=== PATIENT | female | born 1990 | race Caucasian/White ===

== ENCOUNTER 2020-02-24 00:35 | Inpatient (IN) | payer BC ==
[2020-02-24] VITALS (61 sets, daily range): BP systolic 98–143; BP diastolic 53–88; PULSE 71–126; TEMP 97.9–98.6
[~2020-02-24] VITALS: Ht 170.2 cm; Wt 76.6 kg
--- NOTE | 2020-02-24 00:45 | NUR ---
0045- Pt. ambulatory to the floor with by her side. Pt. orientated to room and changed into gown. Pt. reports SROM at 2330 at home. Pt. denies contractions and verbalized some bloody show and reports GFM. 0056- EFM and TOCO on and tracing. RN remains at bedside. Amniotrace done and positive for amniotic fluid. SVE /-2. Vitals taken and assessment completed. 0139- Dr. Palma, transportation operations manager, updated on labor check. See provider notification. Consents signed, IV started and fluids running.
[2020-02-24] MEDS ORDERED: TIROSINT100 MC1 PO (01:08)
[2020-02-24] MEDS ORDERED: PRENATAL TABLET PO (01:08)
[2020-02-24 02:43] LABS: BASO % 0.5 % (0.0-2.0); EOS # 0.1 (0.0-0.7); EOS % 1.7 % (0-4.0); GRAN % 70.9 % (42.2-75.2); HEMATOCRIT 36.5 % (37.0-47.0); HEMOGLOBIN 11.9 g/dl (12.5-16.0); LYMPH # 1.4 (1.2-3.4); LYMPH % 16.9 % (20.0-51.0); MEAN CELL VOLUME 87 fl (80.0-100.0); MEAN CORPUSCULAR HEMOGLOBIN 28 pg (27.0-31.0); MEAN CORPUSCULAR HGB CONC 33 g/dl (33.0-37.0); MEAN PLATELET VOLUME 9.2 fl (7.4-10.4); MONO # 0.8 (0.1-0.6); MONO % 8.9 % (1.7-9.3); PLATELET COUNT 203 K/mm3 (130-400); RED BLOOD COUNT 4.21 M/mm3 (4.10-5.30); REDCELL DISTRIBUTION WIDTH-CV 13.8 % (11.5-14.5)
--- NOTE | 2020-02-24 04:39 | NUR ---
0342- Pt. up to the bathroom. RN remains at bedside. 0346- EFM and TOCO on and tracing. Pt. repositioned to RL. FHT noted to be lower than baseline down to 100bpm. 0349- FHT returned to prior baseline of 125-130. 0413- FHT variability noted to be minimal. SVE unchaged /-2, good response to SS and Pt. repositioned to LL and FHT variability noted to be moderate. Called Dr. Palma, hazard mitigation officer, to update on patient. See physician notification.
--- NOTE | 2020-02-24 06:20 | NUR ---
Report from Mitch Lutz RN and Onofre Ghosh RN and care of patient assumed. RN at bedside to introduce self and review plan of care. Patient reports need for bowel movement. Previous orders per Dr. Palma to have patient use bedpain instead of ambulate to bathroom. Patient assisted to bedpan following SVE 2 by Mitch Lutz RN. Pericare given following and patient repositioned LL.
--- NOTE | 2020-02-24 06:45 | NUR ---
Recommendation for Covid-19 swab per protocol. Patient consented and agrees. Covid-19 swab collected per protocol and sent to lab.
--- NOTE | 2020-02-24 07:50 | NUR ---
0750- Darrion Snider CRNA at bedside for epidural placement. Patient assisted to sit on edge of bed. 0801- Epidural test dose by Darrion Snider CRNA. Patient tolerates well, no adverse reactions noted. See anesthesia record. 0808- Patient repositioned WL following epidural placement. Updated on plan of care and safety.
--- NOTE | 2020-02-24 09:15 | NUR ---
Dr. Rios on unit, reviews FHR strip and contraction pattern. Updated on recent SVE -, patient comfortable with epidural.
--- NOTE | 2020-02-24 10:50 | NUR ---
1050- Dr. Rios at bedside. Patient assisted to "atilio position". Prolonged FHR deceleration noted at this time lasting 8 minutes intermittenly to [address] Rios remains at bedside. 1052- Patient repositioned RL. SVE per provider 6-/0. LR bolus infusing. 1053- Pitocin discontinued at this time. Oxygen via mask at 10L applied. 1055- Patient repositioned to knee-chest position. Physician remains at bedside. FHR returns to baseline at 1058. 1058- Patient repositioned RL. Recurrent early decelerations noted with contractions. Physician remains on unit.
--- NOTE | 2020-02-24 11:25 | NUR ---
Oxygen removed. Dr. Rios on unit, reviews FHR strip. Orders to start Pitocin at 6 mU at 1145.
--- NOTE | 2020-02-24 13:15 | NUR ---
1315- Prolonged FHR deceleration noted lasting five minutes intermittently to 80 bpm. Patient repositioned LL and SVE 9/90/0 at 1315. 1316- LR bolus infusing. 1318- Pitocin discontinued, oxygen via simple mask at 10L applied. 1319- notified via telephone and updated on FHR deceleration and interventions. Patient repositioned to knee chest. 1320- FHR baseline increasing at this time. Patient remains in knee chest with O2 applied and LR infusing. Pitocin remains off. 1330- Patient repositioned RL. 1335- Dr. Rios on unit, reviews FHR strip. 1340- Oxygen removed.
--- NOTE | 2020-02-24 16:10 | NUR ---
1600- SVE per provider 2. Pericare given, stovall catheter removed prior to pushing. 1610- Patient begins pushing with contractions with RN at bedside.
--- NOTE | 2020-02-24 17:05 | NUR ---
1705- Dr. Rios at bedside to assess pushing. Patient continues pushing with contractions. 1729- of viable male infant attended by Dr. Rios. Infant to mother's abdomen, care of to Christa Holly RN. Apgars . Nuchal cord x2 noted. 1734- Spont delivery of placenta. Pitocin bolus started at 333 ml/hr/protocol. Fundal massage by RN, firm at umbilicus. First degree perineal alceration repaired by Dr. Rios, patient tolerates well. 1740- 100 cc clot expressed by physician. Order for IM Methergine. See Emar. Vaginal bleeding WNL following. Pericare given and ice pack applied. Patient updated on plan of care and safety.
--- NOTE | 2020-02-24 21:37 | NUR ---
CATH UA RESULTS REVIEWED. DISCHARGE ORDER OBTAINED. 9641 PRINTED DISHARGE INSTR REVIEWED WITH PT AND SPOUSE- AGREEABLE AND DISCHARGED HOME
[2020-02-25 04:21] VITALS: BP 104/65; PULSE 86; TEMP 98.1
[2020-02-25 07:26] VITALS: BP 108/68; PULSE 87; TEMP 98.1
--- NOTE | 2020-02-25 09:16 | NUR ---
Initial visit; Parents thanked Hot Iron Worker for offering congratulations and God's blessings for the of their son. Hot Iron Worker thanked family for choosing our hospital.
[2020-02-25] MEDS ORDERED: PERCOCET 325 MG1 TA2 PO (10:12)
[2020-02-25] MEDS ORDERED: IBU800 M1 PO (10:12)
[2020-02-25 12:30] VITALS: BP 119/60; PULSE 82; TEMP 98.7
[2020-02-25 16:26] VITALS: BP 116/70; PULSE 82; TEMP 98.1
--- NOTE | 2020-02-25 19:30 | NUR ---
1930 DIMISSAL INSTRUCTIONS GIVEN AND NO QUESTIONS AT THIS TIME. DISMISSED PER AMB TO HOME ACC BY AND BABY AND AUTO CLUTCH SPECIALIST.
== END 2020-02-25 19:30 | disposition home or self-care (01) | DRG 807 ==
LOC: LDRO 00:35 → LDR 01:00 → LDRO 01:00 → LDR 01:43 → OB 20:40
PROVIDERS: Obstetrics & Gynecology; ADMIT Obstetrics & Gynecology
PROC: 10E0XZZ Delivery of Products of Conception, External Approach (ICD-10-PCS; principal; 2020-02-24)
PROC: 0UQGXZZ Repair Vagina, External Approach (ICD-10-PCS; 2020-02-24)
DX: O99.284 Endocrine, nutritional and metabolic diseases complicating childbirth (principal); Z37.0 Single live birth; E03.9 Hypothyroidism, unspecified; O99.344 Other mental disorders complicating childbirth; F41.9 Anxiety disorder, unspecified; O71.4 Obstetric high vaginal laceration alone; O62.2 Other uterine inertia; O69.1XX0 Labor and delivery complicated by cord around neck, with compression, not applicable or unspecified; Z3A.39 39 weeks gestation of pregnancy; Z88.0 Allergy status to penicillin
CPT/HCPCS: J2210; J2590; J7120

== ENCOUNTER → 2020-02-26 | Outpatient (CLI) | payer BC ==
[~2020-02-26] MED LIST: IBU800 M1 PO; PERCOCET 325 MG1 TA2 PO; PRENATAL TABLET PO; TIROSINT100 MC1 PO
--- NOTE | 2020-02-26 15:15 | NUR ---
Pt, Kaye Medina, presents for outpatient consult with two day old baby boy, Albert Medina with c/o sore nipples and Albert having decreased bowel movements. Her spouse, Pablo Medina, accompanies her. Albert was born by on 02/24/2021 and weighed 7#9oz (3420 gms). He reportedly nursed well and had several voids and stools while in the hospital. Since discharge Albert has had no stools, and 2 voids. He has nursed 9 times but pt reports soreness with latching. No change in breast tissue noted at this time. Today Albert weighs 6#12.4 oz (3074 gms) which is 10% down from . Pt is advised/assisted with Albert getting latched deeper. Pt states this feels more comfortable. Colostrum is difficult to express and swallows are difficult to identify. Because of 10% wt loss, SNS feeding is introduced and accepted by family. FOB is instructed/assisted with feeding tube placement. With the supplement Albert's effort improves and swallows are easy to identify. Albert nurses bilaterally and has a total post feed weight gain of 28 gms. Ten were from breast milk and 18 from supplement. POC: SNS 12ml at each breast, each feeding. Monitor for milk volume to increase and reduce/eliminate SNS. Anticipate use of SNS for 24-48 hours, until milk volume increases. If milk is not noted in that time frame pt will add pumping after . F/U: Tomorrow with Dr. Beach. Pt to contact this LC by phone or email with questions, concerns, and an update in the next 24-48 hours. Questions invited and answered.
== END ==
LOC: LDRO → LAC 11:38 → LDRO 02-27 11:57
DX: Z39.1 Encounter for care and examination of lactating mother (principal); Z71.89 Other specified counseling